=== PATIENT | male | born 1995 | race Hispanic/Latino ===

== ENCOUNTER → 2019-04-03 | Outpatient (CLI) | payer OTHER ==
--- NOTE | 2019-04-04 13:36 | ECHO ---
DATE OF PROCEDURE: 04/03/2019 HEIGHT: 68 inches. WEIGHT: 144 pounds. BODY SURFACE AREA: 1.78 meters squared OUTPATIENT REFERRING PHYSICIAN: Dr. Shun Da Silva INDICATION: Murmur. MEASUREMENTS: 2D measurements: RV - 4.0 cm LV - 4.4 cm Septum - 0.9 cm Posterior wall - 0.9 cm Aortic root - 2.7 cm LA - 3.0 cm LVEF - 75% Doppler Measurements: AV- 1.17 meters per second LVOT - 0.9 meters per second LVOT diameter 2.0 cm MV - E, A - 53, E/A ratio 1.5 Early mitral deceleration time - 222 milliseconds E prime medial 10.2, A prime medial 7.3, E prime lateral 17.6 PV - 1.0 meters per second Pulmonary artery acceleration time - 140 milliseconds PASP 18 mmHg IVC - 1.9 cm COMMENTS: Normal sinus rhythm without intraventricular conduction disturbance. M-mode and two-dimensional echocardiography was performed with pulsed, continuous wave, color flow and tissue Doppler studies. Normal left ventricular size and wall thickness with hyperkinetic wall motion. Normal left atrial size and Doppler assessment of LV diastolic function and estimated mean left atrial pressure. Normal right heart chamber sizes, wall thickness and estimated pulmonary arterial pressure. Normal IVC size and collapse against an elevated central venous pressure. Normal appearing and functioning valvular structures. Normal aortic diameters. No apparent intracardiac shunt. No apparent intracardiac mass or pericardial effusion.
== END ==
LOC: M CARPUL 09:03 → EDBD 09:30
PROVIDERS: ATTEND Physician Assistant
DX: R01.1 Cardiac murmur, unspecified (principal)